=== PATIENT | male | born 1995 | race American Indian/Alaskan Native ===

== ENCOUNTER 2017-01-13 03:54 | Emergency (ER) | payer OTHER ==
[2017-01-13 03:55] VITALS: BMI 21.7
[2017-01-13 04:17] VITALS: BP 110/73; PULSE 70; RESP 17; TEMP 97.9
--- NOTE | 2017-01-13 04:22 | ED PDOC ---
Arrival/HPI - General Chief Complaint: Medical Clearance Time Seen by Provider: 01/13/17 03:58 Historian: Patient - History of Present Illness Narrative History of Present Illness (Text): 01/13/17 04:18 Neptali Hobson is a 21 year old male, whose past medical history includes Type 1 diabetes, who presents to the Emergency department under police custody reports he regularly takes Novolog and Lantus but has not taken his medications since yesterday. Patient currently feels fine. Fingerstick in ER: 229. Patient denies any fever, chills, chest pain, shortness of breath, nausea, vomiting, diarrhea, urinary symptoms, back pain, neck pain, headache, dizziness, or any other complaints. Time/Duration: Other (tonight) Symptom Onset: Gradual Symptom Course: Unchanged Activities at Onset: Light Past Medical History - Provider Review Nursing Documentation Reviewed: Yes - Endocrine/Metabolic Hx Diabetes Mellitus Type 1: Yes - Psychiatric Hx Substance Use: No Family/Social History - Physician Review Nursing Documentation Reviewed: Yes Family/Social History: Unknown Family HX Smoking Status: Light Smoker < 10 Cigarettes Daily Hx Alcohol Use: Yes Frequency of alcohol use: Socially Hx Substance Use: No Allergies/Home Meds Allergies/Adverse Reactions: Allergies shellfish derived Allergy (Verified 01/13/17 03:55) ANAPHYLAXIS Home Medications: Home Meds Medication Instructions Recorded Confirmed Unobtainable 01/13/17 01/13/17 Review of Systems - Physician Review All systems were reviewed & negative as marked: Yes - Review of Systems Constitutional: Normal. absent: Fevers Eyes: Normal ENT: Normal Respiratory: Normal. absent: SOB, Cough Cardiovascular: Normal. absent: Chest Pain Gastrointestinal: Normal. absent: Abdominal Pain, Diarrhea, Nausea, Vomiting Genitourinary Male: Normal. absent: Dysuria, Frequency, Hematuria, Urinary Output Changes Musculoskeletal: Normal. absent: Back Pain, Neck Pain Skin: Normal. absent: Rash Neurological: Normal. absent: Headache, Dizziness Endocrine: Normal Hemo/Lymphatic: Normal Psychiatric: Normal Physical Exam Vital Signs Reviewed: Yes Vital Signs Temp Pulse Resp BP Pulse Ox 01/13/17 04:48 17 99 01/13/17 04:09 97.9 F 70 17 110/73 100 Temperature: Afebrile Blood Pressure: Normal Pulse: Regular Respiratory Rate: Normal Appearance: Positive for: Well-Appearing, Non-Toxic, Comfortable Pain Distress: None Mental Status: Positive for: Alert and Oriented X 3 Finger Stick Blood Glucose: 229 - Systems Exam Head: Present: Atraumatic, Normocephalic Pupils: Present: PERRL Extroacular Muscles: Present: EOMI Conjunctiva: Present: Normal Mouth: Present: Moist Mucous Membranes Neck: Present: Normal Range of Motion Respiratory/Chest: Present: Clear to Auscultation, Good Air Exchange. No: Respiratory Distress, Accessory Muscle Use Cardiovascular: Present: Regular Rate and Rhythm, Normal S1, S2. No: Murmurs Abdomen: Present: Normal Bowel Sounds. No: Tenderness, Distention, Peritoneal Signs Back: Present: Normal Inspection Upper Extremity: Present: Normal Inspection. No: Cyanosis, Edema Lower Extremity: Present: Normal Inspection. No: Edema Neurological: Present: GCS=15, CN II-XII Intact, Speech Normal Skin: Present: Warm, Dry, Normal Color. No: Rashes Psychiatric: Present: Alert, Oriented x 3, Normal Insight, Normal Concentration Medical Decision Making ED Course and Treatment: 01/13/17 04:18 Impression: 21 year old male states he has not taken his diabetic medications since yesterday. Pt brought in under police custody. Differential Diagnosis included but are not limited to: diabetes mellitus Plan: -- Insulin -- Reassess and disposition Progress Notes: 01/13/17 04:35 Pt medically cleared for incarceration. - Lab Interpretations Lab Results: Lab Results 01/13/17 03:57: POC Glucose (mg/dL) 229 H - Medication Orders Current Medication Orders: Discontinued Medications Insulin Human Regular (Humulin R) 3 units SC STAT STA Stop: 01/13/17 04:33 Last Admin: 01/13/17 04:47 Dose: 3 units - Scribe Statement The provider has reviewed the documentation as recorded by the Garfield Lackey Provider Scribe Attestation: All medical record entries made by the Scribsaad were at my direction and personally dictated by me. I have reviewed the chart and agree that the record accurately reflects my personal performance of the history, physical exam, medical decision making, and the department course for this patient. I have also personally directed, reviewed, and agree with the discharge instructions and disposition. Disposition/Present on Arrival - Present on Arrival Any Indicators Present on Arrival: No History of DVT/PE: No History of Uncontrolled Diabetes: No Urinary Catheter: No History of Decub. Ulcer: No History Surgical Site Infection Following: None - Disposition Have Diagnosis and Disposition been Completed?: Yes Diagnosis: Insulin dependent diabetes mellitus Disposition: RELEASED IN POLICE CUSTODY Disposition Time: 04:30 Patient Plan: Discharge Condition: STABLE Discharge Instructions (ExitCare): Diabetes Mellitus Type 1 in Adults (ED) Additional Instructions: PATIENT IS MEDICALLY CLEARED FOR INCARCERATION* Forms: [employer] ([employer])
[2017-01-13] MEDS ORDERED: Insulin Regular 1 UNITS/0.01 ML ML SC STA (04:32)
[2017-01-13 04:49] VITALS: O2SAT 99
== END 2017-01-13 04:49 ==
LOC: ED 03:54
DX: E10.9 Type 1 diabetes mellitus without complications (principal); Z79.4 Long term (current) use of insulin; Z65.3 Problems related to other legal circumstances